=== PATIENT | female | born 1960 | race Caucasian/White ===

== ENCOUNTER → 2021-11-03 | Outpatient (CLI) | payer OTHER ==
[~2021-11-03] MED LIST: ATORVASTATIN; MOTRIN 800800 MG/TAB PO; NORCO 325 MG-51 TAB PO; VERAPAMIL; ZANTAC150 MG PO; [UNRECOGNIZED DRUG - REMARK]
== END ==
LOC: MHCPAIN 14:21
DX: M16.12 Unilateral primary osteoarthritis, left hip (principal); M25.552 Pain in left hip; G89.29 Other chronic pain
CPT/HCPCS: G0463

== ENCOUNTER → 2021-11-19 | Outpatient (CLI) | payer OTHER | LOC: MHCPAIN 09:49 | DX: M16.12 Unilateral primary osteoarthritis, left hip (principal); M25.552 Pain in left hip | CPT/HCPCS: J1040; Q9967 ==

== ENCOUNTER → 2021-12-07 | Outpatient (CLI) | payer OTHER | LOC: MHCPAIN 15:01 | DX: M16.11 Unilateral primary osteoarthritis, right hip (principal); M25.551 Pain in right hip; M79.2 Neuralgia and neuritis, unspecified; M16.12 Unilateral primary osteoarthritis, left hip | CPT/HCPCS: G0463 ==

== ENCOUNTER → 2024-02-22 | Outpatient (CLI) | payer OTHER | LOC: MC.RAD 12:43 | DX: Z12.31 Encounter for screening mammogram for malignant neoplasm of breast (principal) ==